=== PATIENT | female | born 2000 | race Caucasian/White ===

== ENCOUNTER 2018-02-22 15:10 | Emergency (ER) | payer SELFPAY ==
[2018-02-22 17:31] LABS: Urine Bacteria <20 /HPF (<20); Urine Culture Reflex Order NOT NEEDED; Urine RBC NONE SEEN /HPF (NONE SEEN)
[2018-02-22 17:37] LABS: Urine Blood TRACE (NEG); Urine Glucose NEGATIVE (NEG); Urine Protein NEGATIVE (NEG); Urine Specific Gravity 1.015 (1.005-1.030); Urine pH 7.5 (5.0-7.0)
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
[2018-02-22] MEDS ORDERED: IBUPROFEN 400 MG TAB ONE (17:57)
[2018-02-22] MEDS ORDERED: DIAZEPAM 2 MG TABLET ONE (18:04)
== END 2018-02-22 18:01 | disposition home or self-care (01) ==
LOC: ER 15:10
DX: M54.12 Radiculopathy, cervical region (principal); V49.40XA Driver injured in collision with unspecified motor vehicles in traffic accident, initial encounter
CPT/HCPCS: 81003; 81015; 81025; 99283